=== PATIENT | female | born 1985 | race Caucasian/White ===

== ENCOUNTER → 2017-12-29 | Outpatient (REF) ==
[2017-12-29 10:06] LABS: LDL CHOLESTEROL 86 mg/dl
== END ==
DX: Z02.9 Encounter for administrative examinations, unspecified (principal)

== ENCOUNTER 2018-01-22 09:04 | Emergency (ER) | payer OTHER ==
[2018-01-22 09:05] VITALS: BP 129/86
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
[2018-01-22] MEDS ORDERED: DIPHTH/TETANUS/ACEL. PERTUSSIS IM ONLY ONE (09:20)
[2018-01-22] MEDS ORDERED: CLINDAMYCIN 150 MG CAP PO ONE (09:20)
[2018-01-22] MEDS ORDERED: CLIN300C99 PO (09:23)
== END 2018-01-22 09:50 | disposition home or self-care (01) ==
LOC: ER 09:16
DX: S41.152A Open bite of left upper arm, initial encounter (principal); S41.151A Open bite of right upper arm, initial encounter; Z77.21 Contact with and (suspected) exposure to potentially hazardous body fluids; Y04.1XXA Assault by human bite, initial encounter; Y99.0 Civilian activity done for income or pay
CPT/HCPCS: 90715; 99283

== ENCOUNTER → 2018-12-24 | Outpatient (REF) ==
[~2018-12-24] MED LIST: CLIN300C99 PO
[2018-12-24 06:47] LABS: LDL CHOLESTEROL 77 mg/dl
== END ==
DX: Z02.9 Encounter for administrative examinations, unspecified (principal)